=== PATIENT | female | born 1995 | race Native Hawaiian/Other Pacific Islander ===

== ENCOUNTER 2017-11-16 16:51 | Emergency (ER) | payer OTHER ==
[~2017-11-16] VITALS: Ht 157.5 cm; Wt 80.7 kg
== END 2017-11-16 18:10 | disposition home or self-care (01) ==
LOC: ED 16:51
DX: S93.401A Sprain of unspecified ligament of right ankle, initial encounter (principal); S96.911A Strain of unspecified muscle and tendon at ankle and foot level, right foot, initial encounter; X50.9XXA Other and unspecified overexertion or strenuous movements or postures, initial encounter
CPT/HCPCS: 99283